=== PATIENT | male | born 1955 | race Caucasian/White ===

== ENCOUNTER 2018-05-25 18:49 | Inpatient (IN) | payer BC ==
--- NOTE | 2018-05-25 19:23 | PDOC ---
Rapid Medical Evaluation Chief Complaint: Syncope/Near Syncope Medical Evaluation: 05/25/18 19:14 I have performed a brief in-person evaluation of this patient. The patient presents with a chief complaint of: + syncope,- this am felt hot and cold, was confused, came inside and fell to couch. Was not arousable for ~ 10mins. came to and notified daughter- then saw Dr Cruz who encouraged to come to ER. Pertinent physical exam findings: alert now, + chest tightness/ shoulder/ some dizziness. I have ordered the following: EKG, The patient will proceed to the ED for further evaluation. Discharge Disposition - Referrals Referrals: Ras Kraft MD [Primary Care Provider] - - Patient Instructions - Post Discharge Activity
--- NOTE | 2018-05-25 20:45 | PDOC ---
History of Present Illness - General Chief Complaint: Syncope/Near Syncope Stated Complaint: PCP SENT Time Seen by Provider: 05/25/18 20:39 History Source: Patient Exam Limitations: No Limitations - History of Present Illness Initial Comments: 05/25/18 20:48 Best Contact:Alba/[phone]:daughter PCP: Dr. Leyva/[phone] Pmhx:Gerd/BPH Pshx:0 Allergies:NKDA FH:0 Social Hx: Cigarettes/ denies Alcohol/ One glass of wine during dinner Drugs/0 63-year-old male presents to the emergency department complaining of syncope with ams and dizziness/unable to identify if the room was spinning @ ~10am today. Patient states at approximately 10 AM this morning, he felt dazed and confused. Patient was looking for his in front of his home and was unable to locate her until he came to the bedroom. Patient states as he was talking to his , fell onto his right side and landed on the couch. Patient's states he was unresponsive but was able to open his eyes when she called out his name. Patient states he was unable to speak because he was extremely confused. Patient denies hitting his head, neck, back. Patient denies any acute injuries. Patient states he felt hot and cold just prior to feeling confused. Patient denies history of similar symptoms. Patient denies fever, chills, nausea /vomiting, lightheadedness, headache, facial pains, neck stiffness, back pains, chest pain, shortness of breath, abdominal pains, flank pains, urinary symptoms , extremity numbness or tingling sensation, bladder or bowel dysfunction. Patient adamantly refused to come to the emergency department but coincidentally had an appointment with his PMD this afternoon for a physical exam. After explaining to his PMD the incident at the place earlier in the day, he deferred the patient to the emergency department for further evaluation/ admission. 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 Past History - Past Medical History Allergies/Adverse Reactions: Allergies Allergy/AdvReac Type Severity Reaction Status Date / Time No Known Allergies Allergy Verified 05/25/18 19:15 Home Medications: Ambulatory Orders Ranitidine HCl [Zantac] 150 mg PO BID 05/25/18 Tamsulosin HCl [Flomax] 0.4 mg PO DAILY 05/25/18 COPD: No GI Disorders: Yes (reflux) Disorders: Yes (bph) - Suicide/Smoking/Psychosocial Hx Smoking History: Former smoker Have you smoked in the past 12 months: No Information on smoking cessation initiated: No Review of Systems - Review of Systems Able to Perform ROS?: Yes Comments:: 05/25/18 21:36 CONSTITUTIONAL: +Chills Absent: fever, diaphoresis, generalized weakness, malaise, loss of appetite HEENT: Absent: rhinorrhea, nasal congestion, throat pain, throat swelling, difficulty swallowing, mouth swelling, ear pain, eye pain, visual Changes CARDIOVASCULAR: Absent: chest pain, loss of consciousness, palpitations, irregular heart rate, peripheral edema RESPIRATORY: Absent: cough, shortness of breath, dyspnea with exertion, orthopnea, wheezing, stridor, hemoptysis GASTROINTESTINAL: Absent: abdominal pain, abdominal distension, nausea, vomiting, diarrhea, constipation, melena, hematochezia GENITOURINARY: Absent: dysuria, frequency, urgency, hesitancy, hematuria, flank pain, genital pain MUSCULOSKELETAL: Absent: myalgia, arthralgia, joint swelling SKIN: Absent: rash, itching, pallor HEMATOLOGIC/IMMUNOLOGIC: Absent: easy bleeding, easy bruising, lymphadenopathy, frequent infections ENDOCRINE: Absent: unexplained weight gain, unexplained weight loss, heat intolerance, cold intolerance NEUROLOGIC: +dizzyness/syncope Absent: headache, focal weakness or paresthesias, unsteady gait, seizure, mental status changes, bladder or bowel incontinence PSYCHIATRIC: Absent: anxiety, depression, suicidal or homicidal ideation, hallucinations. Is the patient limited Slovak proficient: No *Physical Exam - Vital Signs Last Vital Signs Temp Pulse Resp BP Pulse Ox 97.8 F 70 18 164/81 100 05/25/18 19:16 05/25/18 20:46 05/25/18 20:46 05/25/18 20:46 05/25/18 20:46 - Physical Exam Comments: 05/25/18 21:37 GENERAL: Well developed, well nourished. Awake and alert. No acute distress. HEENT: Normocephalic, atraumatic. PERRLA, EOMI. No conjunctival pallor. Sclera are non- icteric. Moist mucous membranes. Oropharynx is clear. NECK: Supple. Full ROM. No JVD. Carotid pulses 2+ and symmetric, without bruits. No thyromegaly. No lymphadenopathy. CARDIOVASCULAR: Regular rate and rhythm. No murmurs, rubs, or gallops. Distal pulses are 2+ and symmetric. PULMONARY: No evidence of respiratory distress. Lungs clear to auscultation bilaterally. No wheezing, rales or rhonchi. ABDOMINAL: Soft. Non-tender. Non-distended. No rebound or guarding. No organomegaly. Normoactive bowel sounds. MUSCULOSKELETAL Normal range of motion at all joints. No bony deformities or tenderness. No CVA tenderness. EXTREMITIES: No cyanosis. No clubbing. No edema. No calf tenderness. SKIN: Warm and dry. Normal capillary refill. No rashes. No jaundice. NEUROLOGICAL: Alert, awake, appropriate. Cranial nerves 2-12 intact. No deficits to light touch and temperature in face, upper extremities and lower extremities. No motor deficits in the in face, upper extremities and lower extremities. Normoreflexic in the upper and lower extremities. Normal speech. Toes are down- going bilaterally. Gait is normal without ataxia. PSYCHIATRIC: Cooperative. Good eye contact. Appropriate mood and affect. Heart Score/ECG Review - History History: Slightly suspicious - Electrocardiogram EKG: Normal - Age Age: 45-65 - Risk Factors Based on the list above the patient has:: 1-2 risk factors - Troponin Troponin: </= normal limit - Score Heart Score - Total: 2 ED Treatment Course - LABORATORY CBC & Chemistry Diagram: 05/25/18 20:50 05/25/18 20:50 - ADDITIONAL ORDERS Additional order review: Laboratory Results 05/25/18 05/25/18 20:50 20:50 PT with INR 12.00 INR 1.02 Sodium 141 Potassium 3.9 Chloride 107 Carbon Dioxide 29 Anion Gap 6 L BUN 22 H Creatinine 0.8 Creat Clearance w eGFR > 60 Random Glucose 80 Calcium 8.3 L Total Bilirubin 0.2 AST 11 L ALT 22 Alkaline Phosphatase 65 Creatine Kinase 117 Troponin I < 0.02 Total Protein 6.8 Albumin 3.9 05/25/18 20:50 RBC 4.96 MCV 85.2 MCHC 34.1 RDW 13.8 MPV 8.5 Neutrophils % 61.3 Lymphocytes % 27.2 Monocytes % 9.3 Eosinophils % 1.7 Basophils % 0.5 - RADIOLOGY Radiology Studies Ordered: Category Date Time Status HEAD CT WITHOUT CONTRAST [CT] Stat CT Scan 05/25/18 20:46 Completed CHEST PA & LAT [RAD] Stat Radiology 05/25/18 20:46 Taken Radiograph Interpretation: 05/25/18 21:59 CT: On evidence of acute intracranial pathology CXR 2v NAD *DC/Admit/Observation/Transfer Diagnosis at time of Disposition: Syncope Qualifiers: Syncope type: unspecified Qualified Code(s): R55 - Syncope and collapse - Discharge Dispostion Condition at time of disposition: Guarded Decision to Admit order: Yes Decision to Admit order Date/Time: Decision to Admit Order Category Date Time Status Decision to Admit to Hospital Routine Admission 05/25/18 21:52 Active - Referrals Referrals: Ras Kraft MD [Primary Care Provider] - - Patient Instructions - Post Discharge Activity Progress Note - Progress Note Progress Note: 2047hrs: called and spoke to Dr. Kraft/pt's PMD @ [phone]. Advised to admit to Dr. Wiseman/[phone] 2134hrs: Called Dr. Wiseman/[phone] 2150hrs: Spoke to Dr. Wiseman/ will admit. 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
--- NOTE | 2018-05-25 20:46 | PDOC ---
*Physical Exam - Vital Signs Last Vital Signs Temp Pulse Resp BP Pulse Ox 97.8 F 70 18 164/81 05/25/18 19:16 05/25/18 19:16 05/25/18 19:16 05/25/18 19:16 ED Treatment Course - LABORATORY CBC & Chemistry Diagram: 05/25/18 20:50 05/25/18 20:50 Medical Decision Making - Medical Decision Making 05/25/18 20:45 63 yo M presenting to the ER with a complaint of syncopal episode Pt seen by Midlevel Provider under my direct supervision Pt interviewed and examined Ancillary studies reviewed I agree with plan as outlined by Midlevel Provider Laboratory Tests 05/25/18 05/25/18 20:50 20:50 WBC 7.8 Hgb 14.4 Hct 42.3 Plt Count 245 BUN 22 H Creatinine 0.8 Creatine Kinase 117 Troponin I < 0.02 *DC/Admit/Observation/Transfer Diagnosis at time of Disposition: Syncope - Discharge Dispostion Condition at time of disposition: Guarded - Referrals Referrals: Ras Kraft MD [Primary Care Provider] - - Patient Instructions - Post Discharge Activity
[2018-05-25 21:05] LABS: BASO % 0.5 % (0-2.0); EOS % 1.7 % (0-4.5); HEMATOCRIT 42.3 % (35.4-49); HEMOGLOBIN 14.4 GM/dL (11.7-16.9); LYMPH % 27.2 % (8-40); MCHC 34.1 g/dl (32.0-35.9); MEAN CELL VOLUME 85.2 fl (80-96); MEAN PLT VOLUME 8.5 fl (7.5-11.1); MONO % 9.3 % (3.8-10.2); NEUT % 61.3 % (42.8-82.8); PLATELET COUNT 245 K/MM3 (134-434); RBC 4.96 M/mm3 (4.00-5.60); RDW 13.8 % (11.9-15.9); WHITE BLOOD COUNT 7.8 K/mm3 (4.0-10.0)
[2018-05-25 21:30] LABS: ALBUMIN 3.9 g/dl (3.4-5.0); ALK PHOS 65 U/L (45-117); ANION GAP 6 MMOL/L (8-16); BILIRUBIN,TOTAL 0.2 mg/dL (0.2-1); BLOOD UREA NITROGEN 22 mg/dL (7-18); CALCIUM 8.3 mg/dL (8.5-10.1); CHLORIDE 107 mmol/L (98-107); CO2 29 mmol/L (21-32); CREATININE 0.8 mg/dL (0.55-1.3); GLUCOSE,RANDOM 80 mg/dL (74-106); POTASSIUM 3.9 mmol/L (3.5-5.1); SGOT/AST 11 U/L (15-37); SGPT/ALT 22 U/L (13-61); SODIUM 141 mmol/L (136-145); TOT PROT 6.8 g/dl (6.4-8.2)
[2018-05-25 21:44] LABS: INR 1.02 (0.83-1.09)
[2018-05-25] MEDS: ASPIRIN COATED 81 MG TABLET.EC PO SCH (22:09)
[2018-05-25] MEDS ORDERED: ASPIRIN COATED 81 MG TABLET.EC ONE (22:12)
[2018-05-25 22:30] LABS: URINE APPEARANCE CLEAR; URINE BILIRUBIN NEGATIVE (<2.0 mg/dL); URINE COLOR LTYELLOW; URINE GLUCOSE (UA) NEGATIVE (NEGATIVE); URINE KETONE NEGATIVE (NEGATIVE); URINE LEUK ESTERASE NEGATIVE (NEGATIVE); URINE NITRITE NEGATIVE (NEGATIVE); URINE PROTEIN NEGATIVE (NEGATIVE); URINE UROBILINOGEN NEGATIVE mg/dL (0.2-1.0)
[2018-05-26 08:23] LABS: CHOLESTEROL 170 mg/dL (50-200); HDL CHOLESTEROL 52 mg/dL (40-60); TRIGLYCERIDES 55 mg/dL (0-150)
[2018-05-26] MEDS: ASPIRIN COATED 81 MG TABLET.EC PO SCH (10:18)
--- NOTE | 2018-05-26 10:41 | CON.NEURO ---
Consult Consult Specialty:: Miriam Referred by:: ER - History of Present Illness History of Present Illness: this is a very pleasant 63-year-old right-handed Persian speaking man with present medical history significant for coronary artery disease osteoarthritis hypertension patient was seen in the emergency room at the request of the primary care physician and the emergency room doctor because the patient had a near-syncopal episode patient was seen at the bedside with the . No report of any recent travel no report of any head trauma patient had a sudden onset of feeling dizzy with true vertigo patient tumbled down patient with questionable loss of consciousness no seizure-like activity no tongue biting no fall. Patient denies any nausea or vomiting. During the stay in the emergency room patient had a CAT scan of the head I ordered an MRI of the brain. Patient with no family history of seizure activity patient denies any chest pain palpitations weakness procedure. Patient was not on aspirin in the past. - History Source Limitations to Obtaining History: No Limitations - Smoking History Smoking history: Former smoker Have you smoked in the past 12 months: No Home Medications - Allergies Allergies/Adverse Reactions: Allergies Allergy/AdvReac Type Severity Reaction Status Date / Time No Known Allergies Allergy Verified 05/25/18 19:15 - Home Medications Home Medications: Ambulatory Orders Ranitidine HCl [Zantac] 150 mg PO BID 05/25/18 Tamsulosin HCl [Flomax] 0.4 mg PO DAILY 05/25/18 Family Disease History - Family Disease History Family History: Denies (cva) Review of Systems - Review of Systems Constitutional: reports: No Symptoms Eyes: reports: No Symptoms Neurological: reports: Headache, Incoordination Physical Exam-Neuro Vital Signs: Vital Signs Temperature 97.8 F 05/25/18 19:16 Pulse Rate 66 05/26/18 10:18 Respiratory Rate 14 05/26/18 10:18 Blood Pressure 141/66 05/26/18 10:18 O2 Sat by Pulse Oximetry (%) 100 05/25/18 20:46 Constitutional: Yes: Well Nourished Neck: Yes: WNL Labs: CBC, BMP 05/25/18 20:50 05/25/18 20:50 INR, PTT INR 1.02 (0.83-1.09) 05/25/18 20:50 - Neuro Exam Level Of Consciousness: Yes: Oriented to Person, Oriented to Place, Oriented to Time Eyes: Yes: PERRTODD Speech: WNL Dominant Hand: Right Cranial Nerves II-XII Intact: Yes DTR's: 1+ Left Bicep, 1+ Right Bicep Response to light touch: Abnormal Response to pain prick: Abnormal Response to temperature: Abnormal Response to vibration: Abnormal Motor Strength: 3/5: Left Arm, Right Arm, Left Leg, Right Leg Gait: Deferred Imaging - Results Cat Scan: Image Reviewed Problem List - Problems (1) Syncope Assessment/Plan: rule out cardiac arrhythmia. 2. Benign positional vertigo. 1. Agree to admitted to monitor. 2. Increase by mouth fluid intake. 3. Fall precautions. 4. Check or status every shift. 5. MRI of the brain with no contrast. 6. ccarotid Doppler. 7. Daily aspirin. 8. Meclizine when necessary dizziness. Code(s): R55 - SYNCOPE AND COLLAPSE Qualifiers: Syncope type: unspecified Qualified Code(s): R55 - Syncope and collapse
[2018-05-26 11:34] LABS: GAMMA GLUTAMYL TRANSPEPTIDASE 12 U/L (5-85)
--- NOTE | 2018-05-26 14:53 | ECHO ---
Name: TRAE MCDOWELL Exam:Adult Echocardiogram Study Date: 05/26/2018 09:43 AM Age: 63 yrs Reason For Study: SYNCOPE Height: 65 in Weight: 150 lb BSA: 1.8 m2 MMode/2D Measurements & Calculations IVSd: 0.95 cm Ao root diam: 2.6 cm LVIDd: 3.7 cm ACS: 1.6 cm LVIDs: 2.6 cm LVPWd: 0.81 cm EDV(Teich): 58.5 ml LVOT diam: 2.1 cm ESV(Teich): 24.4 ml RV S Carl: 11.3 cm/sec Doppler Measurements & Calculations TR max carl: 233.8 cm/sec Med Peak E' Carl: 9.5 cm/sec TR max P.9 mmHg Lat Peak E' Carl: 11.6 cm/sec Procedure A two-dimensional transthoracic echocardiogram with color flow and Doppler was performed. The patient was in normal sinus rhythm during the exam. The patient was in a bradycardic rhythm during the exam. Left Ventricle The left ventricular size, thickness and function are normal. Ejection Fraction = 55. Grade I diastol ic dysfunction, (abnormal relaxation pattern). Right Ventricle The right ventricle is normal in size and function. Atria Normal left and right atrial size and function. Mitral Valve The mitral valve is grossly normal. There is trace mitral regurgitation. Tricuspid Valve The tricuspid valve is not well visualized, but is grossly normal. There is mild tricuspid regurgitat ion. Right ventricular systolic pressure is normal. Aortic Valve The aortic valve is normal in structure and function. There is mild aortic sclerosis.;. No hemodynami virgie significant valvular aortic stenosis. No aortic regurgitation is present. Pulmonic Valve The pulmonic valve is not well visualized. Great Vessels The aortic root is normal size. Pericardium/Pleura There is no pericardial effusion. Interpretation Summary The left ventricular size, thickness and function are normal Normal left and right atrial size and function. There is trace mitral regurgitation. There is mild tricuspid regurgitation. Right ventricular systolic pressure is normal. No hemodynamically significant valvular aortic stenosis. There is no pericardial effusion. MD Sergio Cuevas 05/26/2018 02:53 PM
--- NOTE | 2018-05-26 16:29 | EKG ---
Test Reason : Blood Pressure : / mmHG Vent. Rate : 065 BPM Atrial Rate : 065 BPM P-R Int : 136 ms QRS Dur : 102 ms QT Int : 400 ms P-R-T Axes : 057 063 019 degrees QTc Int : 416 ms NORMAL SINUS RHYTHM NORMAL ECG WHEN COMPARED WITH ECG OF 20-JUL-1997 12:50, VENT. RATE HAS INCREASED BY 22 BPM Confirmed by MD Cuevas Edward ([id number]) on 05/26/2018 4:29:20 PM Referred By: Confirmed By:Sergio Cuevas MD
--- NOTE | 2018-05-26 17:40 | HP ---
Admitting History and Physical - Primary Care Physician PCP: Dante Wiseman - Admission Chief Complaint: passed out History of Present Illness: 63-year-old male presents to the emergency department by way of his PCP complaining of fainting preceded by changes in mental status status earlier on the day of admission. Patient states that he felt dazed and confused in the earlier part of the day, but did not describe rotational dizziness, n-v, changes in vision. Patient was looking for his in front of his home and was unable to locate her until he came to the bedroom. Patient states as he was talking to his , fell onto his right side and landed on the couch. Patient' s states he was unresponsive but was able to open his eyes when she called out his name; there was no convulsions observed. Patient states he was unable to speak because he was extremely confused. Patient denies hitting his head, neck, back. Patient denies any acute injuries. Patient states he felt hot and cold just prior to feeling confused. Patient did state that he had prior infrequent episodes of lightheadedness but no syncope. Past medical investigations did not reveal any pathology. Patient denies fever, chills, headache, facial pains, back pains, chest pain, shortness of breath, abdominal pains, flank pains, urinary symptoms, extremity numbness or tingling sensation, bladder or bowel dysfunction. Patient adamantly refused to come to the emergency department at the time of the occurrence but coincidentally had an appointment with his PCP in the afternoon for a physical exam. After explaining to his PCP the incident at the place earlier in the day, he advised ER evaluation. 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 he denies skipping meals. 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 History of Recent Travel: No Home Medications - Allergies Allergies/Adverse Reactions: Allergies Allergy/AdvReac Type Severity Reaction Status Date / Time No Known Allergies Allergy Verified 05/25/18 19:15 - Home Medications Home Medications: Ambulatory Orders Ranitidine HCl [Zantac] 150 mg PO BID 05/25/18 Tamsulosin HCl [Flomax] 0.4 mg PO DAILY 05/25/18 Family Disease History - Family Disease History Family History: Unremarkable Review of Systems - Review of Systems Constitutional: reports: Weakness Eyes: reports: No Symptoms HENT: reports: No Symptoms Neck: reports: Other (chronic periodic neck pains radiating into both shoulders) Cardiovascular: reports: No Symptoms Respiratory: reports: No Symptoms Gastrointestinal: reports: Other (dyspepsia (chronic)) Genitourinary: reports: No Symptoms Musculoskeletal: reports: No Symptoms Integumentary: reports: No Symptoms Neurological: reports: Confusion (see HPI) Endocrine: reports: No Symptoms Hematology/Lymphatic: reports: No Symptoms Psychiatric: reports: No Symptoms Physical Examination Vital Signs: Vital Signs Temperature 97.8 F 05/25/18 19:16 Pulse Rate 66 05/26/18 10:18 Respiratory Rate 14 05/26/18 10:18 Blood Pressure 141/66 05/26/18 10:18 O2 Sat by Pulse Oximetry (%) 100 05/25/18 20:46 Constitutional: Yes: Well Nourished, No Distress, Calm Eyes: Yes: Conjunctiva Clear, EOM Intact HENT: Yes: WNL Neck: Yes: Supple Cardiovascular: Yes: Regular Rate and Rhythm Respiratory: Yes: CTA Bilaterally Gastrointestinal: Yes: Normal Bowel Sounds, Soft Renal/: Yes: WNL Musculoskeletal: Yes: Muscle Pain (bilat trapezius tenderness) Extremities: Yes: WNL Edema: No Peripheral Pulses WNL: Yes Integumentary: Yes: WNL Neurological: Yes: WNL ...Motor Strength: WNL Psychiatric: Yes: WNL Labs: CBC, BMP 05/25/18 20:50 05/25/18 20:50 CBCD WBC 7.8 K/mm3 (4.0-10.0) 05/25/18 20:50 RBC 4.96 M/mm3 (4.00-5.60) 05/25/18 20:50 Hgb 14.4 GM/dL (11.7-16.9) 05/25/18 20:50 Hct 42.3 % (35.4-49) 05/25/18 20:50 MCV 85.2 fl (80-96) 05/25/18 20:50 MCHC 34.1 g/dl (32.0-35.9) 05/25/18 20:50 RDW 13.8 % (11.9-15.9) 05/25/18 20:50 Plt Count 245 K/MM3 (134-434) 05/25/18 20:50 MPV 8.5 fl (7.5-11.1) 05/25/18 20:50 CMP Sodium 141 mmol/L (136-145) 05/25/18 20:50 Potassium 3.9 mmol/L (3.5-5.1) 05/25/18 20:50 Chloride 107 mmol/L (98-107) 05/25/18 20:50 Carbon Dioxide 29 mmol/L (21-32) 05/25/18 20:50 Anion Gap 6 MMOL/L (8-16) L 05/25/18 20:50 BUN 22 mg/dL (7-18) H 05/25/18 20:50 Creatinine 0.8 mg/dL (0.55-1.3) 05/25/18 20:50 Creat Clearance w eGFR > 60 (>60) 05/25/18 20:50 Random Glucose 80 mg/dL (74-106) 05/25/18 20:50 Calcium 8.3 mg/dL (8.5-10.1) L 05/25/18 20:50 Total Bilirubin 0.2 mg/dL (0.2-1) 05/25/18 20:50 AST 11 U/L (15-37) L 05/25/18 20:50 ALT 22 U/L (13-61) 05/25/18 20:50 Alkaline Phosphatase 65 U/L (45-117) 05/25/18 20:50 Total Protein 6.8 g/dl (6.4-8.2) 05/25/18 20:50 Albumin 3.9 g/dl (3.4-5.0) 05/25/18 20:50 CARDIAC ENZYMES Creatine Kinase 83 IU/L (26-308) 05/26/18 07:10 Troponin I < 0.02 ng/ml (0.00-0.05) 05/26/18 07:10 Imaging - Results Chest X-ray: Report Reviewed Cat Scan: Report Reviewed EKG: Report Reviewed Problem List - Problems (1) Syncope Assessment/Plan: as described; may have had a brief "confusional" prodrome along with lightheadedness prior to passing-out. The lightheadedness lingered sometime after he regained consciousness. There was no report of convulsions, tremors, sweats, incontinenece, focal loss of power, and vision changes. He was seen by his PMD who advised ER evaluation. POSSIBLE CAUSES: TIA, vertigo, low glucose, vasovagal effect; hypotension; cardiac arhythmia; seizure (atypical). He apparently had a neuro eval in 2016 which inclded a brain MRI/MRA (which was negative), a neck MRI, echo, Caroyid duplex, serology and chemstry all of which was WNL: PLAN; imaging with MRI; Cardiac monitoring; orthstatic BP checks ; glucose checks Code(s): R55 - SYNCOPE AND COLLAPSE Qualifiers: Syncope type: unspecified Qualified Code(s): R55 - Syncope and collapse (2) Cervicodynia Assessment/Plan: longstanding; describes pain on neck ROM extending to the shoulders but not beyond. Past neck MRI was unrevealing. he is able to work unimpeded Code(s): M54.2 - CERVICALGIA (3) Prostatism Assessment/Plan: for which he takes Flomax to relieve Sx of bladder outlet impingement Code(s): N40.0 - BENIGN PROSTATIC HYPERPLASIA WITHOUT LOWER URINRY TRACT SYMP (4) Dyspepsia Assessment/Plan: chronic; mild; usually quelled by use of Zantac Code(s): R10.13 - EPIGASTRIC PAIN Assessment/Plan 63-year-old male presents who sustained a witnessed syncopal episode who awoke on his own with no gross objective deficits, but post episode lightheadedness. ~~~~~~~~~~~~~~~~~~~~~~~~~~~~~~~~~~~ Dr Wiseman
[2018-05-26 23:50] VITALS: BMI 25.7
[2018-05-27] MEDS: ASPIRIN COATED 81 MG TABLET.EC PO SCH (09:45)
[2018-05-27 15:11] VITALS: BP 140/65; PULSE 62; TEMP 98
--- NOTE | 2018-05-27 17:05 | DS ---
Physical Examination Vital Signs: Vital Signs Temperature 98 F 05/27/18 15:10 Pulse Rate 62 05/27/18 15:10 Respiratory Rate 18 05/27/18 15:10 Blood Pressure 140/65 05/27/18 15:10 O2 Sat by Pulse Oximetry (%) 98 05/27/18 09:18 Constitutional: Yes: No Distress, Calm Eyes: Yes: Conjunctiva Clear HENT: Yes: Atraumatic Neck: Yes: Supple Cardiovascular: Yes: Regular Rate and Rhythm Respiratory: Yes: CTA Bilaterally Gastrointestinal: Yes: Normal Bowel Sounds Musculoskeletal: Yes: WNL Extremities: Yes: WNL Integumentary: Yes: WNL Neurological: Yes: WNL ...Motor Strength: WNL Psychiatric: Yes: WNL Labs: CBC, BMP 05/25/18 20:50 05/25/18 20:50 Discharge Summary Reason For Visit: SYNCOPE Current Active Problems Cervicodynia (Acute) Dyspepsia (Acute) Prostatism (Acute) Syncope (Acute) Hospital Course: 63 YO active M who was admitted for a witnessed syncopal episode. He was out briefly, and quickly regained consciousness without evidence of convulsions; incontinence; focal weakness; He was his "usual self" by the time he arrived to the ER, and had no further spells. He experienced near-syncope several times in the past 2 years (about the same time he was placed on Flomax for BPH), but never fainted. He was seen by Neurology 2 yrs ago and had a full w/u which was negative (done at [facility]). His VSS, NL troponins, no arrthymias noted; echo unremarkle, brain MRI benign; he displayed no dizziness; he is able to walk without difficulty, and he is alert to baseline. He was seen by Neurology who did not find anything remarkable. Test pending is Lyme's titer.He was advised to stop Flomax completely. Condition: Stable - Instructions Diet, Activity, Other Instructions: usual diet STOP FLOMAX Referrals: Ras Kraft MD [Primary Care Provider] - Disposition: HOME - Home Medications Comprehensive Discharge Medication List: Ambulatory Orders Ranitidine HCl [Zantac] 150 mg PO BID 05/25/18 Aspirin Coated [Ecotrin -] 81 mg PO DAILY tablet.ec 05/27/18
== END 2018-05-27 18:18 | disposition home or self-care (01) | DRG 312 ==
LOC: SUPCPDRO 18:49 → JER 18:49 → JERBED 21:52 → UNDOADMIN 23:36 → J4W 05-26 22:44
PROVIDERS: ADMIT Internal Medicine; ATTEND Internal Medicine
DX: R55 Syncope and collapse (principal); N40.0 Benign prostatic hyperplasia without lower urinary tract symptoms; K21.9 Gastro-esophageal reflux disease without esophagitis; Z87.891 Personal history of nicotine dependence; H81.10 Benign paroxysmal vertigo, unspecified ear; M54.2 Cervicalgia; R10.13 Epigastric pain
CPT/HCPCS: 36415; 70450-TC; 70551-TC; 71046-TC-FY; 80053; 80061; 81003; 82550; 82607; 82962; 82977; 83036; 83721; 84443; 84484; 85025; 85610; 85651; 86618; 86850; 86900; 86901; 93005; 93010; 93306-TC; 93880-TC; 99285-25